=== PATIENT | female | born 1995 ===

== ENCOUNTER 2016-07-23 15:38 | Emergency (ER) | payer MEDICAID ==
[2016-07-23 16:00] VITALS: BP 105/63; PULSE 90; RESP 20; TEMP 98.3; O2SAT 97
--- NOTE | 2016-07-23 16:17 | C.PDOC ---
History Of Present Illness 20 y/o female presents to the ED with complains of painful menses. Pt states her menses has been increasingly painful ever since ectopic November 2014. Denies vomiting, dizziness, fever or any other complaints. Pt took Motrin with little relief. Does not currently have OBGYN. Time Seen by Provider: 07/23/16 16:03 Chief Complaint (Nursing): Female Genitourinary History Per: Patient History/Exam Limitations: no limitations Onset/Duration Of Symptoms: Days Current Symptoms Are (Timing): Still Present Severity: Moderate Quality Of Discomfort: "Pain" Associated Symptoms: denies: Fever, Chills, Nausea, Vomiting Alleviating Factors: None Recent travel outside of the [place]: No Past Medical History Reviewed: Historical Data, Nursing Documentation, Vital Signs Vital Signs: Last Vital Signs Temp 98.3 F 07/23/16 15:54 Pulse 90 07/23/16 15:54 Resp 20 07/23/16 15:54 BP 105/63 07/23/16 15:54 Pulse Ox 97 07/23/16 16:17 Family History: States: Unknown Family Hx - Social History Hx Alcohol Use: No Hx Substance Use: No - Immunization History Hx Tetanus Toxoid Vaccination: No Hx Influenza Vaccination: Yes Hx Pneumococcal Vaccination: No Review Of Systems Except As Marked, All Systems Reviewed And Found Negative. Constitutional: Negative for: Fever, Chills Gastrointestinal: Positive for: Abdominal Pain. Negative for: Nausea, Vomiting Neurological: Negative for: Dizziness Physical Exam - Physical Exam Appears: Non-toxic, No Acute Distress Skin: Warm, Dry, No Rash Head: Atraumatic, Normacephalic Cardiovascular: Rhythm Regular, No Murmur Respiratory: Normal Breath Sounds, No Rales, No Rhonchi, No Wheezing Gastrointestinal/Abdominal: Normal Exam, Soft, No Tenderness, No Guarding, No Rebound Extremity: Bilateral: Atraumatic Neurological/Psych: Oriented x3, Normal Speech ED Course And Treatment - Laboratory Results Urine POC: Negative O2 Sat by Pulse Oximetry: 97 (room air) Pulse Ox Interpretation: Normal Disposition Counseled Patient/Family Regarding: Studies Performed, Diagnosis, Need For Followup, Rx Given - Disposition Referrals: [facility] [Outside] [facility] [Outside] Disposition: HOME/ ROUTINE Disposition Time: 16:35 Condition: IMPROVED Prescriptions: Acetaminophen/Codeine [Tylenol/Codeine 300 MG/30 MG] 2 tab PO Q6H #20 tab Instructions: Dysmenorrhea (ED) Print Language: VATICAN CITIZEN - Clinical Impression Clinical Impression: Dysmenorrhea - Scribe Statement The provider has reviewed the documentation as recorded by the Chavezibgopi Jack Provider Attestation: All medical record entries made by the Bernard were at my direction and personally dictated by me. I have reviewed the chart and agree that the record accurately reflects my personal performance of the history, physical exam, medical decision making, and the department course for this patient. I have also personally directed, reviewed, and agree with the discharge instructions and disposition.
[2016-07-23] MEDS ORDERED: Oxycodone/Acetaminophen 5/325 mg Tab PO STA (16:33)
== END 2016-07-23 17:05 | disposition home or self-care (01) ==
LOC: C.ER 15:38
DX: N94.6 Dysmenorrhea, unspecified (principal)

== ENCOUNTER 2016-10-27 18:53 | Emergency (ER) | payer MEDICAID ==
[2016-10-27 19:05] VITALS: TEMP 98.2
[2016-10-27] MEDS ORDERED: Sodium Chloride 0.9% 1,000 ML IV ONE (19:33)
[2016-10-27 19:58] LABS: BASO % 0.3 % (0.0-2.0); EOS % 0.2 % (0.0-4.0); HEMATOCRIT 40.2 % (34.0-47.0); LYMPH # 0.7 K/uL (1.0-4.3); LYMPH % 6.2 % (20.0-40.0); MEAN CELL VOLUME 88.6 fL (81.0-99.0); MEAN CORPUSCULAR HEMOGLOBIN 30.2 pg (27.0-31.0); MEAN CORPUSCULAR HGB CONC 34.1 g/dL (33.0-37.0); MEAN PLATELET VOLUME 10.1 fL (7.2-11.7); MONO # 0.4 K/uL (0.0-0.8); MONO % 3.5 % (0.0-10.0); PLATELET COUNT 184 K/uL (130-400); RED CELL DISTRIBUTION WIDTH 13.8 % (11.5-14.5); WHITE BLOOD COUNT 11.8 K/uL (4.8-10.8)
--- NOTE | 2016-10-27 19:59 | C.PDOC ---
History Of Present Illness 20 year old female who presents to the ER with a complaint of a subjective fever , body aches, sore throat, and generalized weakness since yesterday. Patient believes she is anemic and notes she is currently menstruating. Denies nausea, vomiting, or diarrhea.no abdominal pain, no urinary symptoms, no sick contacts. Time Seen by Provider: 10/27/16 19:19 Chief Complaint (Nursing): Fever History Per: Patient History/Exam Limitations: no limitations Onset/Duration Of Symptoms: Days Current Symptoms Are (Timing): Still Present Location Of Pain: Diffuse Myalgias Sick Contacts (Context): None Associated Symptoms: Fever (Subjective). denies: Vomiting, Diarrhea Ear Symptoms: Bilateral: None Recent travel outside of the [place]: No Past Medical History Reviewed: Historical Data, Nursing Documentation, Vital Signs Vital Signs: Last Vital Signs Temp 98.2 F 10/27/16 18:58 Pulse 82 10/27/16 20:45 Resp 16 10/27/16 20:45 BP 96/60 L 10/27/16 20:45 Pulse Ox 98 10/27/16 23:35 - Medical History PMH: No Chronic Diseases Surgical History: No Surg Hx Family History: States: Unknown Family Hx - Social History Hx Alcohol Use: No Hx Substance Use: No - Immunization History Hx Tetanus Toxoid Vaccination: No Hx Influenza Vaccination: Yes Hx Pneumococcal Vaccination: No Review Of Systems Constitutional: Positive for: Fever (Subjective), Weakness Gastrointestinal: Negative for: Nausea, Vomiting, Diarrhea Musculoskeletal: Positive for: Other (Generalized body aches) Physical Exam - Physical Exam Appears: Non-toxic Skin: Normal Color, Warm, Dry Head: Atraumatic, Normacephalic Oral Mucosa: Moist Chest: Symmetrical, No Tenderness Cardiovascular: Rhythm Regular, No Murmur Respiratory: Normal Breath Sounds, No Rales, No Rhonchi, No Wheezing Gastrointestinal/Abdominal: Soft, No Tenderness, No Distention, No Guarding, No Rebound Back: No CVA Tenderness Neurological/Psych: Oriented x3, Normal Speech, Normal Cognition ED Course And Treatment - Laboratory Results Result Diagrams: 10/27/16 19:43 10/27/16 19:43 O2 Sat by Pulse Oximetry: 98 (Room air) Pulse Ox Interpretation: Normal Medical Decision Making Medical Decision Making: Plan: Blood work Urinalysis Throat culture IV fluids 830 pm pt feeling better, resting comfortably. will d/c with clinic f/u Pt currently menstruating, no urinaty symptoms, will not treat for uti. Disposition Counseled Patient/Family Regarding: Studies Performed, Diagnosis, Need For Followup, Rx Given - Disposition Referrals: [facility] [Outside] Disposition: HOME/ ROUTINE Disposition Time: 20:32 Condition: STABLE Additional Instructions: Por favor, siga en la clnica mdica la prxima semana. Mantngase chet hidratado. Reeds ibuprofeno o Tylenol para los morales del cuerpo, si es necesario. [place] en cama / tomarlo con calma kary unos kelly. Vuelva al ER para cualquier sntoma que empeora. Instructions: Viral Syndrome (ED) Forms: Gen Discharge Inst Chadian, [email or web address] (Chadian) Print Language: GREEK - Clinical Impression Clinical Impression: Viral syndrome - Scribe Statement The provider has reviewed the documentation as recorded by the Scribe Nitin Masters All medical record entries made by the Scribe were at my direction and personally dictated by me. I have reviewed the chart and agree that the record accurately reflects my personal performance of the history, physical exam, medical decision making, and the department course for this patient. I have also personally directed, reviewed, and agree with the discharge instructions and disposition.
[2016-10-27 20:14] LABS: CHLORIDE 103 mmol/L (98-107); POTASSIUM 3.3 mmol/L (3.6-5.2); SODIUM 138 mmol/L (132-148)
[2016-10-27 20:16] LABS: GFR AFRICAN-AMERICAN > 60
[2016-10-27 20:17] LABS: BLOOD UREA NITROGEN 10 mg/dL (7-17); CALCIUM 8.4 mg/dl (8.6-10.4); CARBON DIOXIDE 22 mmol/L (22-30); GLUCOSE,RANDOM 90 mg/dL (65-105)
[2016-10-27 20:22] LABS: RBC URINE 642 /hpf (0-3); URINE BACTERIA OCC (<OCC); URINE BILIRUBIN NEGATIVE (NEGATIVE); URINE BLOOD 3+ (NEGATIVE); URINE COLOR Amber (YELLOW); URINE GLUCOSE (UA) NORMAL (Normal); URINE KETONE NEGATIVE (NEGATIVE); URINE PROTEIN 2+ mg/dL (NEGATIVE); WBC URINE 16 /hpf (0-5)
[2016-10-27 20:24] LABS: URINE LEUKOCYTE ESTERASE 1+ Leu/uL (Negative)
[2016-10-27 20:45] VITALS: BP 96/60; PULSE 82; RESP 16
[2016-10-27 21:05] LABS: NEUTROPHIL 91 % (50-75); TOTAL CELLS COUNTED 100
[2016-10-27 23:35] VITALS: O2SAT 98
== END 2016-10-27 20:58 | disposition home or self-care (01) ==
LOC: C.ER 18:53
DX: B34.9 Viral infection, unspecified (principal)
CPT/HCPCS: 80048; 81001; 85025; 87070; 87430; 96360; 99283; J7040

== ENCOUNTER 2018-01-19 20:09 | Emergency (ER) | payer MEDICAID ==
[2018-01-19 20:10] VITALS: BMI 18.3
[2018-01-19 20:18] VITALS: BP 100/66; PULSE 74; RESP 16; TEMP 98.4; O2SAT 100
--- NOTE | 2018-01-19 20:46 | C.PDOC ---
History Of Present Illness 22 y/o female pt presents to the ER c/o sore throat with headache and subjective fever for x2 days. Pt uses home remedies but has not use any medications. Pt denies chills, abdominal pain, SOB and chest pain. Time Seen by Provider: 01/19/18 20:31 Chief Complaint (Nursing): ENT Problem History Per: Patient History/Exam Limitations: no limitations Onset/Duration Of Symptoms: Days (x2) Current Symptoms Are (Timing): Still Present Past Medical History Reviewed: Historical Data, Nursing Documentation, Vital Signs Vital Signs: Last Vital Signs Temp 98.4 F 01/19/18 20:12 Pulse 74 01/19/18 20:12 Resp 16 01/19/18 20:12 BP 100/66 01/19/18 20:12 Pulse Ox 100 01/19/18 20:12 Family History: States: Unknown Family Hx - Social History Hx Alcohol Use: No Hx Substance Use: No - Immunization History Hx Tetanus Toxoid Vaccination: No Hx Influenza Vaccination: No Hx Pneumococcal Vaccination: No Review Of Systems Except As Marked, All Systems Reviewed And Found Negative. Constitutional: Positive for: Fever (subjective). Negative for: Chills ENT: Positive for: Throat Pain Cardiovascular: Negative for: Chest Pain Respiratory: Negative for: Shortness of Breath Gastrointestinal: Negative for: Abdominal Pain Neurological: Positive for: Headache Physical Exam - Physical Exam Appears: Non-toxic, No Acute Distress Skin: Normal Color, Warm, Dry, No Rash Head: Atraumatic, Normacephalic Eye(s): bilateral: Normal Inspection, PERRL, EOMI Ear(s): Bilateral: Normal Nose: Normal Oral Mucosa: Moist Throat: Erythema, No Exudate Neck: Normal ROM, Supple Lymphatic: Adenopathy (submandibular, tender) Chest: Symmetrical, No Deformity Cardiovascular: Rhythm Regular Respiratory: Normal Breath Sounds Gastrointestinal/Abdominal: Soft, No Tenderness Neurological/Psych: Oriented x3, Normal Speech, Normal Cognition ED Course And Treatment O2 Sat by Pulse Oximetry: 100 (RA) Pulse Ox Interpretation: Normal Progress Note: Impression: sore throat with headache. Plans: -- motrin. Reassess: Patient is resting comfortably, tolerating PO, and is afebrile at this time. Clinical signs and symptoms are not suggestive of sepsis, meningitis, UTI, pneumonia, intra-abdominal pathology, or cellulitis. Patient will be discharged home, and instructed to follow up with his/her physician in 1-2 days without fail. Patient was instructed to return for any worsening symptoms, persistent fever, neck pain, rash, abdominal pain, or vomiting. Disposition Counseled Patient/Family Regarding: Diagnosis, Need For Followup, Rx Given - Disposition Referrals: [facility] at [facility] [Outside] Disposition: HOME/ ROUTINE Disposition Time: 20:46 Condition: STABLE Additional Instructions: Please follow up with PMD Increase fluids Gargle with warm salt water/ Or use chloraseptic spray Take medications as directed return to ER if worse Prescriptions: Amoxicillin 500 mg PO TID #21 tab Cetirizine HCl [Zyrtec] 10 mg PO DAILY #14 capsule Ibuprofen [Motrin] 600 mg PO Q6H #24 tab Instructions: Sore Throat, Adult (DC) Forms: [employer] (Chinese), Work Excuse - Clinical Impression Clinical Impression: Pharyngitis - 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 - Scribe Statement The provider has reviewed the documentation as recorded by the Bernard Palomino Do All medical record entries made by the Bernard were at my direction and personally dictated by me. I have reviewed the chart and agree that the record accurately reflects my personal performance of the history, physical exam, medical decision making, and the department course for this patient. I have also personally directed, reviewed, and agree with the discharge instructions and disposition.
== END 2018-01-19 20:53 | disposition home or self-care (01) ==
LOC: C.ER 20:09
DX: J02.9 Acute pharyngitis, unspecified (principal)